=== PATIENT | female | born 1950 | race Caucasian/White ===

== ENCOUNTER 2018-10-20 06:41 | Emergency (ER) | payer BC, MEDICARE, OTHER ==
[2018-10-20] MEDS ORDERED: LIDOCAINE HCL 2% (VISCOUS) 15 ML SOL ONE (07:13)
[2018-10-20] MEDS ORDERED: ALUMINUM/MAGNESIUM 30 ML SUS ONE (07:13)
[2018-10-20 07:20] VITALS: TEMP 97.8
[2018-10-20] MEDS: LIDOCAINE HCL 2% (VISCOUS) 15 ML SOL MT ONE (07:21)
[2018-10-20] MEDS: ALUMINUM/MAGNESIUM 30 ML SUS PO ONE (07:21)
[2018-10-20 07:37] LABS: BLOOD UREA NITROGEN 33 mg/dl (7-18); CALCIUM 8.9 mg/dl (8.5-10.1); CARBON DIOXIDE 27.1 mEq/L (21-32); CHLORIDE 103 mMol/L (98-107); CREATINE KINASE 127 U/L (26-192); CREATININE 1.04 mg/dl (0.60-1.00); GLUCOSE 152 mg/dl (74-106); INR 1.04 (0.86-1.12); POTASSIUM 3.9 mMol/L (3.5-5.1); SODIUM 141 mMol/L (136-145); TROP I < 0.017 ng/ml (0.000-0.056)
[2018-10-20 08:39] LABS: BASOPHILS % (AUTO) 0 % (0-3); EOSINOPHILS % (AUTO) 0 % (0-9); HEMATOCRIT 38 % (35-47); HEMOGLOBIN 11.8 gm/dl (12.0-15.5); LYMPHOCYTES % (AUTO) 10.1 % (10-50); MEAN CORPUSCULAR HEMOGLOBIN 30.4 pg (27.0-32.0); MEAN CORPUSCULAR HGB CONC 31.4 gm/dl (32.0-36.0); MEAN CORPUSCULAR VOLUME 97 fL (81-99); MONOCYTES % (AUTO) 7.7 % (0-12); NEUTROPHILS % (AUTO) 81.8 % (37-80)
[2018-10-20 08:45] VITALS: BP 146/89; PULSE 57; RESP 17; O2SAT 99
== END 2018-10-20 08:35 | disposition home or self-care (01) | DRG 392 ==
LOC: ED 06:41
DX: K21.9 Gastro-esophageal reflux disease without esophagitis (principal); R07.9 Chest pain, unspecified
CPT/HCPCS: 36415; 71045; 80048; 82550; 84484; 85025; 85610; 85730; 93005; 99283; 99284; A9270-GY

== ENCOUNTER 2018-10-31 08:00 | Emergency (ER) | payer OTHER ==
[2018-10-31] MEDS ORDERED: SODIUM CHLORIDE 0.9% FLUSH 10 ML SOL IV PRN (08:13)
[2018-10-31] MEDS ORDERED: SODIUM CHLORIDE 0.9% 1000ML 1,000 ML IV ONE ×2 (08:19→09:52)
[2018-10-31 08:36] LABS: BASOPHILS % (AUTO) 1 % (0-3); EOSINOPHILS % (AUTO) 0 % (0-9); HEMATOCRIT 35 % (35-47); HEMOGLOBIN 11.5 gm/dl (12.0-15.5); LYMPHOCYTES % (AUTO) 12.1 % (10-50); MEAN CORPUSCULAR HEMOGLOBIN 31.1 pg (27.0-32.0); MEAN CORPUSCULAR HGB CONC 33.1 gm/dl (32.0-36.0); MEAN CORPUSCULAR VOLUME 94 fL (81-99); MONOCYTES % (AUTO) 8.6 % (0-12); NEUTROPHILS % (AUTO) 78.1 % (37-80)
[2018-10-31 08:44] LABS: INR 1.14 (0.86-1.12)
[2018-10-31 08:53] LABS: BLOOD UREA NITROGEN 14 mg/dl (7-18); CALCIUM 8.8 mg/dl (8.5-10.1); CHLORIDE 99 mMol/L (98-107); CREATININE 0.94 mg/dl (0.60-1.00); GLUCOSE 114 mg/dl (74-106); POTASSIUM 3.8 mMol/L (3.5-5.1); SODIUM 137 mMol/L (136-145); TROP I < 0.017 ng/ml (0.000-0.056)
[2018-10-31 09:15] LABS: DIGOXIN 0.7 ng/ml (0.9-2.0)
[2018-10-31 09:32] VITALS: TEMP 98.1
[2018-10-31 11:14] VITALS: O2SAT 98
[2018-10-31 12:10] VITALS: BP 85/44; PULSE 66; RESP 12
== END 2018-10-31 12:10 | disposition short-term general hospital (02) | DRG 315 ==
LOC: ED 08:00
DX: I95.0 Idiopathic hypotension (principal); G45.9 Transient cerebral ischemic attack, unspecified
CPT/HCPCS: 70450; 80048; 80162; 83880; 84484; 85025; 85610; 85730; 93005; 96365; 96366; 99284; 99285